=== PATIENT | female | born 1985 | race African-American/Black ===

== ENCOUNTER 2017-09-18 11:21 | Emergency (ER) | payer OTHER ==
[~2017-09-18] VITALS: Ht 167.6 cm; Wt 102.1 kg
[2017-09-18 11:37] VITALS: BP 118/77
[2017-09-18] MEDS ORDERED: IBUPROFEN600 MG ORAL (12:18)
[2017-09-18 12:25] VITALS: BP 118/77
--- NOTE | 2017-09-18 12:31 | Emergency Room Report ---
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 onto her left hand Appears to be in a extended fashion The patient was having discomfort to the forearm and wrist since then describes the pain as 6/10 worse with moving the hand backward Denies any shoulder pain denies any loss of consciousness denies any chest pain or back pain Allergies: Coded Allergies: No Known Allergies (Unverified , 09/18/17) Patient History Past Medical History: see triage record Pertinent Family History: none Reviewed Nursing Documentation: PMH: Agreed, PSxH: Agreed Nursing Documentation-PMH Past Medical History: No Stated History Review of Systems All Other Systems: negative except mentioned in HPI Physical Exam Vital Signs Date Time Temp Pulse Resp B/P (MAP) Pulse Ox O2 Delivery O2 Flow Rate FiO2 09/18/17 11:26 97.9 99 20 118/77 99 Sp02 EP Interpretation: reviewed, normal General Appearance: well appearing, no apparent distress Head: normocephalic, atraumatic Eyes: bilateral eye PERRL, bilateral eye EOMI ENT: hearing grossly normal, normal pharynx, TMs + canals normal, uvula midline Neck: full range of motion, supple, no meningismus, no bony tend Respiratory: lungs clear, normal breath sounds, no rhonchi, no respiratory distress, no retraction, no accessory muscle use Cardiovascular #1: normal peripheral pulses, regular rate, rhythm, no edema, no gallop, no JVD, no murmur Gastrointestinal: normal bowel sounds, non tender, soft, no mass, no organomegaly, non-distended, no guarding, no hernia, no pulsatile mass, no rebound Genitourinary: no CVA tenderness Musculoskeletal: other - Patient has reproducible discomfort dorsally on extension of the left hand otherwise able to make appropriate supervisor functional testing able to supinate and pronate, Neurologic: oriented x3, responsive, lining closer III-XII nml as tested, sensory intact Psychiatric: mood/affect normal Skin: normal color, no rash, warm/dry, palpation normal Lymphatic: normal inspection, no adenopathy Procedures Splinting Splinting : Consent: Written Location: left wrist Pre-Made Type: velcro Splint: volar Pre-Proc Neuro Vasc Exam: normal Post-Proc Neuro Vasc Exam: normal Patient Tolerated: Well Complications: None Medical Decision Making Diagnostic Impression: Primary Impression: wrist sprain ER Course Patient had x-ray imaging of the wrist and forearm they do not show any obvious acute pathology patient was applied a splint given her discomfort in a stable for close outpatient workers comp clinic workup Other X-Ray Diagnostic Results Other X-Ray Diagnostic Results #1: X-Ray ordered: left wrist # of Views/Limited Vs Complete: 3 View Indication: Pain EP Interpretation: Yes Interpretation: no dislocation, no soft tissue swelling, no fractures Impression: No acute disease Electronically Signed by: Skinny Trujillo DO Other X-Ray Diagnostic Results #2: X-Ray ordered: left forearm # of Views/Limited Vs Complete: 2 View Indication: Pain EP Interpretation: Yes Interpretation: no dislocation, no soft tissue swelling, no fractures Impression: No acute disease Electronically Signed by: Skinny Trujillo DO Last Vital Signs Date Time Temp Pulse Resp B/P (MAP) Pulse Ox O2 Delivery O2 Flow Rate FiO2 09/18/17 11:37 97.9 84 20 118/77 99 Status: improved Disposition: HOME, SELF-CARE Condition: Improved Scripts Ibuprofen* (MOTRIN*) 600 Mg Tablet 600 MG ORAL Q8H Y for For Pain, #20 TAB 0 Refills Prov: SKINNY TRUJILLO D.O. 09/18/17 Referrals: NON PHYSICIAN (PCP) Patient Instructions: Wrist Splint, [id number] Additional Instructions: Patient is provided with the discharge instructions notified to follow up with primary doctor in the next 2-3 days otherwise return to the er with any worsening symptoms. Please note that this report is being documented using [employer] technology. This can lead to erroneous entry secondary to incorrect interpretation by the dictating instrument. SKINNY TRUJILLO D.O. Sep 18, 2017 12:31
--- NOTE | 2017-09-19 12:05 | Diagnostic Imaging Report ---
Indication: Pain Findings: 3 views of the left wrist were obtained. No acute fractures, malalignment, erosions or periostitis are identified. Soft tissues are unremarkable. Impression: No acute findings.
--- NOTE | 2017-09-19 12:05 | Diagnostic Imaging Report ---
Indication: Pain Findings: 2 views of the left forearm were obtained. No acute fractures, malalignment, erosions or periostitis are identified. Bone mineralization is within normal limits. Soft tissues are unremarkable. Impression: Negative for acute injury.
== END 2017-09-18 12:31 | disposition home or self-care (01) ==
LOC: EMR 12:05
DX: S63.502A Unspecified sprain of left wrist, initial encounter (principal); X50.9XXA Other and unspecified overexertion or strenuous movements or postures, initial encounter; Y93.F9 Activity, other caregiving; Y92.129 Unspecified place in nursing home as the place of occurrence of the external cause; Y99.0 Civilian activity done for income or pay
CPT/HCPCS: 29125; 99283